=== PATIENT | male | born 1980 | race Caucasian/White ===

== ENCOUNTER 2018-03-22 17:45 | Observation (INO) | payer MEDICAID ==
[~2018-03-22] VITALS: Ht 182.9 cm; Wt 117.9 kg
[~2018-03-22 17:45] MED LIST: ALPR0.5T7; FLU05NSL; LIS10T GT
[2018-03-22 18:39] LABS: Urine Bacteria NONE SEEN /hpf (None Seen); Urine Blood Negative /uL (Negative); Urine WBC 1 /hpf (0 - 3)
[2018-03-22 18:55] LABS: Amphetamine Screen, Urine NEGATIVE (NEGATIVE); Barbiturate Scree,Urine NEGATIVE (NEGATIVE); Benzodiazephine Screen, Urine NEGATIVE (NEGATIVE); Cannabinoid Screen, Urine NEGATIVE (NEGATIVE); Cocaine Screen, Urine NEGATIVE (NEGATIVE); Opiate Scree,Urine NEGATIVE (NEGATIVE); Phencyclidine Screen, Urine NEGATIVE (NEGATIVE)
[2018-03-22 18:57] LABS: Basophils # (auto) 0.1 uL; Basophils % (auto) 0.9 % (0.0-2.0); Eosinophils # (auto) 0.2 uL; Eosinophils % (auto) 2.8 % (0.0-7.0); Hematocrit 41.6 % (41.0-53.0); Hemoglobin 14.5 g/dL (13.5-17.5); Lymphocytes # (auto) 1.6 uL; Lymphocytes % (auto) 25.9 % (10.0-50.0); Mean Corpuscular Hemoglobin 31.3 pg (28.0-32.0); Mean Corpuscular Hgb Conc. 34.8 g/dL (32.0-36.0); Monocytes # (auto) 0.5 uL; Monocytes % (auto) 7.5 % (0.0-12.0); Neutrophils # (auto) 3.8 uL; Neutrophils % (auto) 62.9 % (37.0-80.0); Nucleated Red Blood Cells % 0.1 %; Platelet Count (auto) 210 10^3/uL (140-450); Red Blood Cells 4.63 10^6/uL (4.5-5.90); Red Cell Distribution Width 12.2 % (11.8-14.3); White Blood Cell 6.1 10^3/uL (4.4-10.8)
[2018-03-22 19:09] LABS: Albumin 3.3 g/dL (3.4-5.0); Anion Gap 8 (5-15); Blood Urea Nitrogen 15 mg/dL (7-18); Carbon Dioxide 26 mmol/L (21-32); Chloride 106 mmol/L (98-107); GFR African American 92 mL/min; GFR Non-African American 76 mL/min; Glucose 103 mg/dL (74-106); Potassium 4.3 mmol/L (3.5-5.1); Sodium 140 mmol/L (136-145)
[2018-03-22 19:14] LABS: Alanine Aminotransferase 40 U/L (16-61); Alkaline Phosphatase 48 U/L (45-117); Aspartate Aminotransferase 27 U/L (15-37); Bilirubin, Total 0.4 mg/dL (0.2-1.0)
[2018-03-22 21:46] VITALS: BP 141/96
== END 2018-03-22 23:45 | disposition home or self-care (01) | DRG 203 ==
LOC: ER 17:49 → OVERFLOW 17:50 → ER 23:45
PROVIDERS: ADMIT Emergency Medicine; ATTEND Emergency Medicine
DX: R07.89 Other chest pain (principal); E44.1 Mild protein-calorie malnutrition; F10.10 Alcohol abuse, uncomplicated; F41.9 Anxiety disorder, unspecified; I10 Essential (primary) hypertension; I48.91 Unspecified atrial fibrillation; Z87.891 Personal history of nicotine dependence
CPT/HCPCS: 36415; 71046; 80053; 80307; 81001; 83735; 84484; 85025; 93005; 99285; G0378

== ENCOUNTER 2018-08-31 20:58 | Emergency (ER) | payer MEDICAID ==
[~2018-08-31] VITALS: Ht 182.9 cm; Wt 73.9 kg
[2018-08-31 21:23] VITALS: BP 163/95
[2018-08-31 21:57] LABS: Basophils # (auto) 0.1 uL; Basophils % (auto) 1.5 % (0.0-2.0); Eosinophils # (auto) 0.1 uL; Hematocrit 41.3 % (41.0-53.0); Hemoglobin 14.6 g/dL (13.5-17.5); Lymphocytes # (auto) 1.7 uL; Lymphocytes % (auto) 26.7 % (10.0-50.0); Mean Corpuscular Hgb Conc. 35.4 g/dL (32.0-36.0); Mean Corpuscular Volume 90.3 fL (80.0-100.0); Monocytes # (auto) 0.6 uL; Monocytes % (auto) 8.8 % (0.0-12.0); Neutrophils # (auto) 3.8 uL; Nucleated Red Blood Cells % 0.2 %; Platelet Count (auto) 227 10^3/uL (140-450); Red Blood Cells 4.57 10^6/uL (4.5-5.90); Red Cell Distribution Width 12.1 % (11.8-14.3); White Blood Cell 6.3 10^3/uL (4.4-10.8)
[2018-08-31 22:18] LABS: Albumin 3.8 g/dL (3.4-5.0); Anion Gap 9 (5-15); Blood Urea Nitrogen 11 mg/dL (7-18); Calcium 9.1 mg/dL (8.5-10.1); Carbon Dioxide 25 mmol/L (21-32); Chloride 105 mmol/L (98-107); Glucose 99 mg/dL (74-106); Potassium 3.6 mmol/L (3.5-5.1); Sodium 139 mmol/L (136-145)
[2018-08-31 22:19] LABS: INR 0.93 (0.9-1.15); Partial Thromboplastin Time 27.4 sec (23.78-33.04)
[2018-08-31 22:25] LABS: Alanine Aminotransferase 33 U/L (16-61); Alkaline Phosphatase 56 U/L (45-117); Aspartate Aminotransferase 22 U/L (15-37); BUN/Creatinine Ratio 11.1; Bilirubin, Total 0.4 mg/dL (0.2-1.0); GFR African American 109 mL/min; GFR Non-African American 90 mL/min; Total Protein 7.1 g/dL (6.4-8.2)
== END 2018-09-01 04:50 | disposition left against medical advice (07) ==
LOC: ER 21:01
DX: I10 Essential (primary) hypertension (principal); Z53.21 Procedure and treatment not carried out due to patient leaving prior to being seen by health care provider
CPT/HCPCS: 36415; 71046; 80053; 83735; 83880; 84484; 85025; 85610; 85730; 93005

== ENCOUNTER 2022-07-18 11:15 | Emergency (ER) | payer MEDICAID ==
[~2022-07-18] VITALS: Ht 182.9 cm; Wt 118.0 kg
[2022-07-18 11:41] LABS: Basophils # (auto) 0.1 10 ^3/uL (0-0.2); Basophils % (auto) 1.4 % (0.0-2.0); Eosinophils # (auto) 0.5 10 ^3/uL (0-0.8); Eosinophils % (auto) 6.9 % (0.0-7.0); Hematocrit 41.2 % (41.0-53.0); Hemoglobin 14.3 g/dL (13.5-17.5); Lymphocytes # (auto) 1.7 10 ^3/uL (0.4-5.4); Lymphocytes % (auto) 26.2 % (10.0-50.0); Mean Corpuscular Hemoglobin 30.4 pg (28.0-32.0); Mean Corpuscular Hgb Conc. 34.6 g/dL (32.0-36.0); Mean Corpuscular Volume 87.8 fL (80.0-100.0); Monocytes # (auto) 0.4 10 ^3/uL (0-1.3); Monocytes % (auto) 6.3 % (0.0-12.0); Neutrophils # (auto) 3.9 10 ^3/uL (1.6-8.6); Neutrophils % (auto) 59.2 % (37.0-80.0); Nucleated Red Blood Cells % 0.1 %; Red Cell Distribution Width 13.1 % (11.8-14.3); White Blood Cell 6.5 10^3/uL (4.4-10.8)
[2022-07-18 11:55] LABS: Partial Thromboplastin Time 29.1 sec (24.6-33.4)
[2022-07-18 12:05] LABS: Albumin 3.8 g/dL (3.4-5.0); Calcium 8.4 mg/dL (8.5-10.1); Magnesium 2.1 mg/dL (1.6-2.6)
[2022-07-18 12:09] LABS: BUN/Creatinine Ratio 17.3; Bilirubin, Total 0.5 mg/dL (0.2-1.0); Total Protein 6.5 g/dL (6.4-8.2)
[2022-07-18] MEDS ORDERED: METOCLOPRAMIDE HCL 10 MG TAB PO ONE (12:30)
[2022-07-18] MEDS ORDERED: METO-281 PO (12:35)
[2022-07-18] MEDS ORDERED: ALUMCHW6 PO (12:35)
[2022-07-18 12:52] VITALS: BP 153/74
== END 2022-07-18 13:18 | disposition home or self-care (01) ==
LOC: ER 11:15
DX: R07.89 Other chest pain (principal); F41.9 Anxiety disorder, unspecified; K44.9 Diaphragmatic hernia without obstruction or gangrene; K21.00 Gastro-esophageal reflux disease with esophagitis, without bleeding; I10 Essential (primary) hypertension
CPT/HCPCS: 36415; 71046; 80053; 83735; 84484; 85025; 85610; 85730; 93005; 99285; J8597

== ENCOUNTER 2022-12-28 21:02 | Emergency (ER) | payer MEDICAID ==
[~2022-12-28] VITALS: Ht 182.9 cm; Wt 107.0 kg
[~2022-12-28 21:02] MED LIST changes: +ALUMCHW6 PO; +METO-281 PO
[2022-12-28 21:35] LABS: Basophils # (auto) 0.1 10 ^3/uL (0-0.2); Basophils % (auto) 0.7 % (0.0-2.0); Eosinophils # (auto) 0.3 10 ^3/uL (0-0.8); Eosinophils % (auto) 2.8 % (0.0-7.0); Hematocrit 41.6 % (41.0-53.0); Hemoglobin 14.2 g/dL (13.5-17.5); Lymphocytes # (auto) 2.1 10 ^3/uL (0.4-5.4); Lymphocytes % (auto) 21.5 % (10.0-50.0); Mean Corpuscular Hemoglobin 30.3 pg (28.0-32.0); Mean Corpuscular Hgb Conc. 34.1 g/dL (32.0-36.0); Mean Corpuscular Volume 88.7 fL (80.0-100.0); Monocytes # (auto) 0.6 10 ^3/uL (0-1.3); Monocytes % (auto) 6.4 % (0.0-12.0); Neutrophils # (auto) 6.8 10 ^3/uL (1.6-8.6); Neutrophils % (auto) 68.6 % (37.0-80.0); Nucleated Red Blood Cells % 0.3 %; Red Blood Cells 4.69 10^6/uL (4.5-5.90); Red Cell Distribution Width 13.2 % (11.8-14.3); White Blood Cell 9.9 10^3/uL (4.4-10.8)
[2022-12-28 21:52] LABS: Albumin 3.8 g/dL (3.4-5.0); BUN/Creatinine Ratio 14.4 (10.0-20.0); Calcium 8.6 mg/dL (8.5-10.1); Magnesium 2.1 mg/dL (1.6-2.6); Potassium 3.6 mmol/L (3.5-5.1)
[2022-12-28 21:54] LABS: Bilirubin, Total 0.4 mg/dL (0.2-1.0); Total Protein 6.9 g/dL (6.4-8.2)
[2022-12-29 01:33] VITALS: BP 140/86; PULSE 89; RESP 16; TEMP 98.1; O2SAT 100
== END 2022-12-29 00:54 | disposition home or self-care (01) ==
LOC: ER 21:02
DX: R07.9 Chest pain, unspecified (principal); F41.9 Anxiety disorder, unspecified; I10 Essential (primary) hypertension; I48.91 Unspecified atrial fibrillation; Z87.891 Personal history of nicotine dependence; Z79.899 Other long term (current) drug therapy
CPT/HCPCS: 36415; 71045; 80053; 83735; 84484; 85025; 93005

== ENCOUNTER 2024-05-29 09:39 | Emergency (ER) | payer OTHER, BC, MEDICAID ==
[~2024-05-29] VITALS: Ht 182.9 cm; Wt 72.7 kg
[2024-05-29 11:24] VITALS: BP 155/100; PULSE 90; RESP 16; TEMP 97.9; O2SAT 99
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
== END 2024-05-29 12:22 | disposition home or self-care (01) ==
LOC: ER 09:39 → EDBD 09:39 → ER 12:21
DX: S16.1XXA Strain of muscle, fascia and tendon at neck level, initial encounter (principal); S63.591A Other specified sprain of right wrist, initial encounter; I10 Essential (primary) hypertension; F41.9 Anxiety disorder, unspecified; I48.91 Unspecified atrial fibrillation; Z79.899 Other long term (current) drug therapy; V49.88XA Car occupant (driver) (passenger) injured in other specified transport accidents, initial encounter; Y93.I9 Activity, other involving external motion; Y92.488 Other paved roadways as the place of occurrence of the external cause; Y99.8 Other external cause status
CPT/HCPCS: 29125; 72040; 73110

== ENCOUNTER 2025-05-14 09:21 | Emergency (ER) | payer BC, MEDICAID, OTHER ==
[~2025-05-14] VITALS: Ht 182.9 cm; Wt 105.0 kg
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
[2025-05-14] MEDS: SODIUM CHLORIDE 0.9% 1,000 ML IV ONE ×2 (09:48→10:27)
[2025-05-14 09:51] LABS: Hematocrit 51.9 % (41.0-53.0); Hemoglobin 18.3 g/dL (13.5-17.5); Mean Corpuscular Hemoglobin 31.9 pg (28.0-32.0); Mean Corpuscular Volume 90.8 fL (80.0-100.0); Nucleated Red Blood Cells % 0.2 %
[2025-05-14 09:53] VITALS: PULSE 140; RESP 16; O2SAT 99
[2025-05-14 09:54] LABS: Chloride 107 mmol/L (98-107); Potassium 4.4 mmol/L (3.5-5.1); Sodium 143 mmol/L (136-145)
[2025-05-14 09:55] LABS: Anion Gap 9 (5-15); Calcium 9.5 mg/dL (8.7-10.4); Carbon Dioxide 27 mmol/L (20-31)
[2025-05-14 10:00] LABS: BUN/Creatinine Ratio 10.0 (10.0-20.0); Blood Urea Nitrogen 11 mg/dL (9-23); Glucose 95 mg/dL (74-106)
--- NOTE | 2025-05-14 10:02 | DVH ---
EXAM: XY CHEST PORTABLE Indication: chest pain Technique: Single frontal view of the chest was obtained Comparison: XY CHEST XRAY 1 VIEW on DOS: 12/29/22, CHEST TWO VIEWS ROUTINE on DOS: 07/18/22, CXR2 on DOS: 07/18/22 FINDINGS: Lines and Tubes: None Lungs: No focal consolidation. Pleura: No effusion. No pneumothorax. Cardiomediastinal contours: Unremarkable Bones: No acute osseous abnormality. IMPRESSION: No acute cardiopulmonary disease.
[2025-05-14 10:12] LABS: Urine Protein, UAD Negative (Negative)
[2025-05-14] MEDS ORDERED: AMIODARONE BOLUS KIT 100 ML IV ONE (11:32)
[2025-05-14] MEDS: AMIODARONE BOLUS KIT 100 ML IV ONE (11:33)
[2025-05-14] MEDS ORDERED: DIGOXIN (250MCG/ML) 2 ML AMPULE ONE (12:00)
[2025-05-14] MEDS: DIGOXIN (250MCG/ML) 2 ML AMPULE IV ONE (12:07)
[2025-05-14] MEDS ORDERED: dilTIAZem 25 MG/5 ML VIAL IV ONE (12:45)
[2025-05-14] MEDS: dilTIAZem 25 MG/5 ML VIAL IV ONE (12:50)
[2025-05-14] MEDS ORDERED: APIX5TAB PO (13:22)
[2025-05-14] MEDS ORDERED: MET25T PO (13:22)
[2025-05-14 13:30] VITALS: BP 149/86; PULSE 73; RESP 19; TEMP 97.9; O2SAT 96
--- NOTE | 2025-05-14 17:42 | DVHDS2 ---
New Physician D'charge PN Admitting Diagnosis Admitting Diagnosis palpitations Discharge Diagnosis afib rvr, now converted NSR Operations or Procedures none Reason(s) For Hospitalization Surgery Hospital Course 44 M who comes to ER c/o palpitations that woke him up from sleep. He states he checked his pulse and his heart was beating faster than normal. When he arrived to the ER his was noted to have HR 140s in afib RVR. His laboratory data revealed a normal CBC and chemistry panel was also normal with preserved renal function. His troponin enzymes were negative x 3 and his CXR was clear with no acute findings. He was intially given amiodarone bolus 150 mg followed by cardizem 15 mg IV push x 1 and the patient converted to NSR as confirmed by EKG. His condition improved and HR remained in the 70s sinus rhythm. He will be discharged home with PO lopressor BID along with eliquis 5 mg PO BID for stroke prevention in the setting of paroxysmal atrial fibrillation, He will have outpt cardiology follow up. Scripts for his medications sent to his pharmacy on file. Herita to arrange for all outpt follow up. Patient instructed to return to the ER or call 911 should his symptoms worsen. All parties in agreement with plan and patient to be discharged home with the above mentioned medication and follow up. Treatment Plan Discharge Condition of Discharge Good Disposition Home Discharge Instructions Diet: Cardiac 2g Na,low cholest Activity: Light activity Medications: see med sheet Follow Up Care Follow Up/Referral: pcp cardio Discharge Statement: "Patient was advised to return to the ER or call 911 if any headaches, dizziness, shortness of breath, chest pain, abdominal pain, bleeding, fevers, or worsening of medical condition. Patient was counseled about treatment plan, medications, possible side effects, patientverbalized understanding. All questions were answered to the best of my ability. This discharge took greater then 30 minutes in planning, reviewing documentation, counseling the patient, and discussing with other team members." EMELY THORNTON MD May 14, 2025 17:42
--- NOTE | 2025-05-16 01:23 | ECG ---
[facility] Test Date: 2025-05-14 Test Time: 13:28:28 Pat Name: MED PEREA Department: ED Room: Gender: M Occupational Therapy Assistant: FARZANA : 1980 Requested By: OUSMANE RAYO Order Number: [id number] Reading MD: Aamir Lowery Measurements Intervals [place] Rate: 70 P: 49 WV: 162 QRS: 75 QRSD: 90 T: 63 QT: 367 QTc: 396 Interpretive Statements Sinus rhythm Electronically Signed On 05-16-2025 14:44:39 PST by Aamir Lowery Please click the below link to view image of tracing.
--- NOTE | 2025-05-17 08:02 | ECG ---
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
--- NOTE | 2025-05-17 08:03 | ECG ---
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
--- NOTE | 2025-05-17 08:17 | ECG ---
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
== END 2025-05-14 13:46 | disposition home or self-care (01) ==
LOC: EDBD 09:21 → ER 09:21
DX: I48.0 Paroxysmal atrial fibrillation (principal); F10.90 Alcohol use, unspecified, uncomplicated; I10 Essential (primary) hypertension; F41.9 Anxiety disorder, unspecified; Z79.899 Other long term (current) drug therapy; Y90.9 Presence of alcohol in blood, level not specified
CPT/HCPCS: 36415; 71045; 80048; 81001; 83605; 83880; 84484; 85025; 93005; 96361; 96374; 96375; 99291; J1160; J7030

== ENCOUNTER 2025-06-13 20:39 | Emergency (ER) | payer BC ==
[~2025-06-13 20:39] MED LIST changes: +APIX5TAB PO; +MET25T PO
== END 2025-06-13 20:40 | disposition left against medical advice (07) ==
LOC: ER 20:39
DX: R68.89 Other general symptoms and signs (principal); Z76.0 Encounter for issue of repeat prescription; Z53.21 Procedure and treatment not carried out due to patient leaving prior to being seen by health care provider